=== PATIENT | male | born 1945 | race Caucasian/White ===

== ENCOUNTER 2017-05-31 15:06 | Inpatient (IN) | payer MEDICAID, OTHER ==
[2017-05-31] MEDS ORDERED: ATROPINE SULFATE 1 MG/10 ML SYR ONE (15:46)
--- NOTE | 2017-05-31 15:52 | CPEKG ---
Heart Rate: 97 RR Interval: 619 P-R Interval: 194 QRSD Interval: 156 QT Interval: 484 QTC Interval: 615 P [place]: 46 QRS [place]: -62 T Wave [place]: 137 EKG Severity - ABNORMAL ECG - EKG Impression: MOBITZ II AV BLOCK EKG Impression: IVCD, CONSIDER ATYPICAL RBBB EKG Impression: PROBABLE ANTEROSEPTAL INFARCT, OLD Electronically Signed By: Deloris Berry 03-Jun-2017 08:54:43
[2017-05-31] MEDS ORDERED: NS 1,000 ML IV ONE ×3 (15:53→20:30)
[2017-05-31] MEDS ORDERED: ASPIRIN 81 MG CHEWABLE TAB PO ONE (15:53)
[2017-05-31] MEDS ORDERED: ATROPINE SULFATE 1 MG/10 ML SYR IVP ONE (15:54)
[2017-05-31 16:10] LABS: PLATELET COUNT 317 10^3/uL (150-400)
[2017-05-31 16:20] LABS: INR 0.99 (0.83-1.16); PROTIME(PATIENT) 13.3 SEC (12.0-15.0)
--- NOTE | 2017-05-31 16:32 | CPEKG ---
Heart Rate: 44 RR Interval: 1364 P-R Interval: 212 QRSD Interval: 178 QT Interval: 612 QTC Interval: 524 P [place]: 48 QRS [place]: -61 T Wave [place]: 49 EKG Severity - ABNORMAL ECG - EKG Impression: SINUS BRADYCARDIA EKG Impression: RBBB AND LAFB Electronically Signed By: Deloris Berry 03-Jun-2017 08:53:46
--- NOTE | 2017-05-31 16:36 | EDPHY ---
H & P Stated Complaint: waves of dizzyness/saw [facility] wed tx for vertigo/hr 40"s Time Seen by Provider: 05/31/17 15:38 HPI/ROS: CHIEF COMPLAINT: Waves of dizziness HISTORY OF PRESENT ILLNESS: This is a 71-year-old male presents emergency department reporting 6 days of dizzy episodes. He describes the dizziness as lasting about 30 sec. And has both a spinning sensation as well as feeling that he might faint. He did see his primary care physician at the [facility] and had an EKG by his reports. He was told that he had vertigo. He was given over-the- counter meclizine. Patient presents today reporting that the symptoms have been worsening and have been persistent. He has no chest pain. No shortness of breath. No fainting although he did have an episode of vomiting. No cardiac history. Patient was noted to be bradycardic at triage. He denies any pre-existing fevers or chills. Denies diarrhea, urinary complaints, headache. REVIEW OF SYSTEMS: Aside from elements discussed in the HPI, a comprehensive 10-point review of systems was reviewed and is negative. PAST MEDICAL HISTORY: High blood pressure SOCIAL HISTORY: Former smoker. No alcohol. Denies drug use. VITAL SIGNS Reviewed by me. GENERAL: Well-developed, well-nourished, resting comfortably in no respiratory distress. Pleasant. HEENT: Atraumatic. Eyes: No icterus, no injection. Mouth: moist mucous membranes. No erythema or lesions. Neck: supple with no adenopathy. LUNGS: Clear to auscultation bilaterally, no wheezes, rhonchi or rales. CARDIAC: Bradycardic rate. No murmur. ABDOMEN: Soft, nontender, nondistended, bowel sounds normal. BACK: No CVA tenderness. EXTREMITIES: No trauma. No edema. Range of motion is normal throughout. NEURO: Alert and oriented, grossly nonfocal. SKIN: Warm and dry, no rash. PSYCHIATRIC: Normal mentation, no agitation. - Personal History Current Tetanus/Diphtheria Vaccine: Yes - Medical/Surgical History Hx Asthma: No Hx Chronic Respiratory Disease: No Hx Diabetes: No Hx Cardiac Disease: No Hx Renal Disease: No Hx Cirrhosis: No Hx Alcoholism: No Hx HIV/AIDS: No Hx Splenectomy or Spleen Trauma: No Other PMH: vertigo/htn - Social History Smoking Status: Never smoked Constitutional: Initial Vital Signs Temperature (C) 36.7 C 05/31/17 15:20 Heart Rate 44 L 05/31/17 15:20 Respiratory Rate 17 05/31/17 15:20 Blood Pressure 125/71 H 05/31/17 15:20 O2 Sat (%) 95 05/31/17 15:20 O2 Delivery Mode Room Air Allergies/Adverse Reactions: Sulfa (Sulfonamide Antibiotics) Allergy (Verified 05/31/17 15:18) Home Medications: Medication Instructions Recorded Albuterol [Proventil Inhaler HFA 1 - 2 puffs IH Q6H PRN 05/31/17 (*)] Budesonide/Formoterol 80/4.5 2 puffs IH BID 05/31/17 [Symbicort 80-4.5 Mcg Inhaler] Cetirizine [ZyrTEC 10 mg (*)] 10 mg PO DAILY 05/31/17 Levothyroxine [Synthroid 75 mcg 75 mcg PO DAILY06 05/31/17 (*)] Lisinopril/Hctz 20/12.5MG 1 ea PO DAILY 05/31/17 [Zestoretic/Prinzide 20/12.5MG (*)] Medical Decision Making ED Course/Re-evaluation: 71-year-old gentleman presenting to the emergency department with episodes of dizziness. He was noted to be bradycardic at triage. Monitor demonstrates type 2 heart block with 2-1 block. Patient's EKG is a bit more difficult to interpret secondary to baseline artifact but demonstrates second-degree heart block on my reading, Mobitz type 2. Patient had IV placed and was placed on the monitor. Pacer were also applied. Blood pressure is normotensive at 125/71. Patient's course was discussed with Dr. Saul Alvares. Images of the rhythm strips and EKG were transmitted to Dr. Alvares who reviewed them. Patient felt to be stable currently for hospital admission with pacer pads and plan for cardiology evaluation and likely pacemaker placement tomorrow. Troponin 0.018. Patient has a mildly elevated creatinine at 1.4, no old records available at this time for comparison. Patient was evaluated the emergency department by the hospitalist service, Dr. Mabry. Please see his notations. Results of the EKG and consultation with Cardiology were reviewed with the patient. He is in agreement with the plan of admission and understands the need for further evaluation. Blood pressures remained stable in the emergency department. Differential Diagnosis: Differential diagnosis of the patient's dizziness was considered including but not limited to peripheral and central causes of vertigo, cardiac arrhythmias, cardiac ischemia, electrolyte disturbances, neurologic causes, orthostatic causes including dehydration, and blood loss. Consult/Admit Bed Type: Dr. Heraclio Mabry, [facility] - Data Points Laboratory Results: Laboratory Results 05/31/17 15:53 05/31/17 15:50 Medications Given: Acetaminophen/Codeine Phosphate (Tylenol #3) 1 - 2 tab PO Q6HRS PRN PRN Reason: Cough, Mild Stop: 06/11/17 21:34 Last Admin: 06/01/17 21:48 Dose: 1 tab Albuterol (Proventil Inhaler) 1 - 2 puffs IH Q6H PRN PRN Reason: Short of Breath/Dyspnea Stop: 11/27/17 18:01 Last Admin: 06/02/17 08:16 Dose: 2 puffs Albuterol/Ipratropium (Duoneb) 3 ml IH Q6 RO Stop: 11/29/17 17:59 Last Admin: 06/03/17 05:33 Dose: 3 ml Aspirin Buffered (Aspirin Ec) 325 mg PO DAILY RO Stop: 11/29/17 08:59 Last Admin: 06/02/17 08:18 Dose: 325 mg Atorvastatin Calcium (Lipitor) 40 mg PO DAILY RO Stop: 11/29/17 11:29 Last Admin: 06/02/17 15:22 Dose: 40 mg Budesonide/Formoterol Fumarate (Symbicort 80-4.5 Mcg Inhaler) 2 puffs IH BID RO Stop: 11/27/17 20:59 Last Admin: 06/03/17 08:04 Dose: 2 puffs Cetirizine HCl (Zyrtec) 10 mg PO DAILY RO Stop: 11/28/17 08:59 Last Admin: 06/02/17 08:17 Dose: 10 mg Clopidogrel Bisulfate (Plavix) 75 mg PO DAILY RO Stop: 11/29/17 08:59 Last Admin: 06/02/17 08:18 Dose: 75 mg Levothyroxine Sodium (Synthroid) 75 mcg PO DAILY06 RO Stop: 11/28/17 05:59 Last Admin: 06/03/17 06:16 Dose: 75 mcg Discontinued Medications Aspirin (Aspirin) 324 mg PO EDNOW ONE Stop: 05/31/17 15:54 Last Admin: 05/31/17 15:58 Dose: 324 mg Aspirin Buffered (Aspirin Ec) 325 mg PO ONCALL ONE Stop: 06/01/17 08:50 Last Admin: 06/01/17 11:40 Dose: 325 mg Atropine Sulfate (Atropine 1 Mg/10 Ml Syringe) 1 mg IVP EDNOW ONE Stop: 05/31/17 15:55 Last Admin: 05/31/17 15:59 Dose: 1 mg Bacitracin (Bacitracin 1000 Ml Irrigation) 50,000 units IRR ONCALL ONE Stop: 05/31/17 20:31 Last Admin: 06/01/17 03:14 Dose: Not Given Bacitracin (Bacitracin 1000 Ml Irrigation) 50,000 units IRR ONCALL ONE Stop: 06/01/17 14:53 Last Admin: 06/01/17 17:10 Dose: Not Given Bacitracin (Bacitracin 1000 Ml Irrigation) 50,000 units IRR ONCALL ONE Stop: 06/02/17 09:01 Last Admin: 06/02/17 14:13 Dose: Not Given Clopidogrel Bisulfate (Plavix) 600 mg PO ONCE ONE Stop: 06/01/17 14:45 Last Admin: 06/01/17 15:14 Dose: Not Given Diazepam (Valium) 5 mg PO ONCALL ONE Stop: 06/01/17 08:50 Last Admin: 06/01/17 11:40 Dose: 5 mg Diazepam (Valium) 5 mg PO ONCALL ONE Stop: 06/02/17 09:01 Last Admin: 06/02/17 08:59 Dose: 5 mg Diphenhydramine HCl (Benadryl) 25 mg PO ONCALL ONE Stop: 06/01/17 08:50 Last Admin: 06/01/17 11:40 Dose: 25 mg Diphenhydramine HCl (Benadryl) 25 mg PO ONCALL ONE Stop: 06/02/17 09:01 Last Admin: 06/02/17 08:59 Dose: 25 mg Famotidine (Pepcid) 20 mg PO ONCALL ONE Stop: 06/01/17 08:50 Last Admin: 06/01/17 11:40 Dose: 20 mg Famotidine (Pepcid) 20 mg PO ONCALL ONE Stop: 06/02/17 09:01 Last Admin: 06/02/17 08:59 Dose: 20 mg Sodium Chloride (Ns) 1,000 mls @ 0 mls/hr IV EDNOW ONE; Wide Open PRN Reason: Protocol Stop: 05/31/17 15:54 Last Admin: 05/31/17 15:58 Dose: 1,000 mls Sodium Chloride (Ns) 1,000 mls @ 150 mls/hr IV CONT RO Stop: 11/27/17 17:14 Last Admin: 06/01/17 18:42 Dose: 1,000 mls Sodium Chloride (Ns) 1,000 mls @ 0 mls/hr IV ONCE ONE; Wide Open PRN Reason: Protocol Stop: 05/31/17 17:56 Last Admin: 06/01/17 03:14 Dose: Not Given Sodium Chloride (Ns) 1,000 mls @ 0 mls/hr IV ONCALL ONE PRN Reason: As Directed Stop: 05/31/17 20:31 Last Admin: 06/01/17 03:14 Dose: Not Given Cefazolin Sodium (Cefazolin Syringe) 2 gm in 20 mls @ 200 mls/hr IVP ONCALL ONE PRN Reason: Protocol Stop: 06/01/17 14:57 Last Admin: 06/01/17 17:10 Dose: Not Given Sodium Chloride (Ns) 1,000 mls @ 0 mls/hr IV ONCALL ONE PRN Reason: As Directed Stop: 06/01/17 14:53 Last Admin: 06/01/17 10:15 Dose: 1,000 mls Cefazolin Sodium (Cefazolin Syringe) 2 gm in 20 mls @ 200 mls/hr IVP ONCALL ONE PRN Reason: Protocol Stop: 06/02/17 09:05 Last Admin: 06/02/17 14:13 Dose: Not Given Nitroglycerin (Nitro-Bid 2%) 1 inch TP Q6HRS [facility] Stop: 11/28/17 00:00 Last Admin: 06/01/17 18:43 Dose: Not Given Departure - Departure Disposition: [facility] Acute Clinical Impression: Heart block AV second degree Condition: Fair
[2017-05-31] MEDS ORDERED: ACETAMINOPHEN 325 MG TAB PO PRN (17:12)
--- NOTE | 2017-05-31 17:51 | PDGENHP ---
History and Physical - Chief Complaint Acute dizziness - History of Present Illness PCP: Dr. Sandoval [facility] in [place] HPI: 71 yo M p/w acute dizziness characterized as a transient lightheaded feeling, no room spinning, w/ onset of symptoms 6 days ago and duration approx 30 seconds on each episode. The dizziness is intermittent, not positional, and not exacerbated by head movement. He went to PCP office, had blood chemistries drawn (reportedly "normal"), had a Aly-Halpike performed, was told he had vertigo, was instructed to take PRN meclizine. He attempted meclizine, and initially felt like it alleviated symptoms. However, over the interval between then and now, symptoms have persisted, have been associated w/ one episode of vomiting. Meclizine does not alleviate them. They are not associated w/ chest pain, and patient reports that he has baseline shortness of breath which is stable. He has had a mildly productive cough. He reports that he has had normal PO intake of solids and liquids, drinks "a lot" of soda/fluids daily, but has not had any food on the date of this presentation. He has never had a stress test or Echo that he recalls History Information - Allergies/Home Medication List Allergies/Adverse Reactions: Sulfa (Sulfonamide Antibiotics) Allergy (Verified 05/31/17 15:18) Home Medications: Hydrochlorothiazide 05/31/17 [Last Taken Unknown] Levothyroxine 05/31/17 [Last Taken Unknown] Meclizine HCl 05/31/17 [Last Taken Unknown] I have personally reviewed and updated: family history, medical history, social history, surgical history - Past Medical History hypertension Additional medical history: Reported restrictive lung disease 2/2 caustic exposure in past - Surgical History Additional surgical history: Hernia repair 1991 - Family History Additional family history: no family hx of heart block or premature CAD - Social History Smoking Status: Former smoker Alcohol Use: None Drug Use: None Additional social history: Retired [place] , 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 Review of Systems Review of Systems: ROS: 10pt was reviewed & negative except for what was stated in HPI & below Respiratory: Reports: cough Gastrointestinal: Reports: vomitting Neurological: Reports: other (dizziness) Physical Exam Physical Exam: Temp Pulse Resp BP Pulse Ox 36.7 C 47 L 18 107/67 96 05/31/17 15:20 05/31/17 17:35 05/31/17 17:35 05/31/17 17:35 05/31/17 17:35 Constitutional: no apparent distress, appears nourished, not in pain, obese, No uncomfortable Eyes: PERRL, anicteric sclera, EOMI Ears, Nose, Mouth, Throat: hearing normal, no oral mucosal ulcers, other (tacky mucous membranes) Cardiovascular: bradycardia, No systolic murmur (distant heart sounds), No irregularly irregular, No tachycardia, No edema Respiratory: no respiratory distress, no rales or rhonchi, clear to auscultation Gastrointestinal: normoactive bowel sounds, soft, non-tender abdomen, no palpable masses, No distension Skin: No abrasion, No rash Neurologic: AAOx3, sensation intact bilaterally, No weakness (motor 5/5 bilat UE /LE), No facial droop Psychiatric: interacting appropriately, not anxious, not encephalopathic, thought process linear Lymph, Heme, Immunologic: other (2cm submandibular lymph nodes, non-tender) Lab Data & Imaging Review 05/31/17 15:53 05/31/17 15:50 WBC 12.60 10^3/uL (3.80-9.50) H 05/31/17 15:53 RBC 5.70 10^6/uL (4.40-6.38) 05/31/17 15:53 Hgb 16.4 g/dL (13.7-17.5) 05/31/17 15:53 Hct 48.3 % (40.0-51.0) 05/31/17 15:53 MCV 84.7 fL (81.5-99.8) 05/31/17 15:53 MCH 28.8 pg (27.9-34.1) 05/31/17 15:53 MCHC 34.0 g/dL (32.4-36.7) 05/31/17 15:53 RDW 15.2 % (11.5-15.2) 05/31/17 15:53 Plt Count 317 10^3/uL (150-400) 05/31/17 15:53 MPV 9.0 fL (8.7-11.7) 05/31/17 15:53 Neut % (Auto) 72.8 % (39.3-74.2) 05/31/17 15:53 Lymph % (Auto) 16.3 % (15.0-45.0) 05/31/17 15:53 [place] % (Auto) 7.6 % (4.5-13.0) 05/31/17 15:53 Eos % (Auto) 2.1 % (0.6-7.6) 05/31/17 15:53 Baso % (Auto) 0.6 % (0.3-1.7) 05/31/17 15:53 Nucleat RBC Rel Count 0.0 % (0.0-0.2) 05/31/17 15:53 Absolute Neuts (auto) 9.17 10^3/uL (1.70-6.50) H 05/31/17 15:53 Absolute Lymphs (auto) 2.05 10^3/uL (1.00-3.00) 05/31/17 15:53 Absolute Monos (auto) 0.96 10^3/uL (0.30-0.80) H 05/31/17 15:53 Absolute Eos (auto) 0.27 10^3/uL (0.03-0.40) 05/31/17 15:53 Absolute Basos (auto) 0.07 10^3/uL (0.02-0.10) 05/31/17 15:53 Absolute Nucleated RBC 0.00 10^3/uL (0-0.01) 05/31/17 15:53 Immature Gran % 0.6 % (0.0-1.1) 05/31/17 15:53 Immature Gran # 0.08 10^3/uL (0.00-0.10) 05/31/17 15:53 PT 13.3 SEC (12.0-15.0) 05/31/17 15:30 INR 0.99 (0.83-1.16) 05/31/17 15:30 APTT 31.9 SEC (23.0-38.0) 05/31/17 15:30 Sodium 137 mEq/L (135-145) 05/31/17 15:50 Potassium 4.4 mEq/L (3.5-5.2) 05/31/17 15:50 Chloride 101 mEq/L (97-110) 05/31/17 15:50 Carbon Dioxide 21 mEq/l (22-31) L 05/31/17 15:50 Anion Gap 15 mEq/L (8-16) 05/31/17 15:50 BUN 26 mg/dL (7-23) H 05/31/17 15:50 Creatinine 1.4 mg/dL (0.7-1.3) H 05/31/17 15:50 Estimated GFR 50 05/31/17 15:50 Glucose 109 mg/dL (70-100) H 05/31/17 15:50 Calcium 9.7 mg/dL (8.5-10.4) 05/31/17 15:50 Troponin I 0.018 ng/mL (0.000-0.034) 05/31/17 15:50 Visualized and Interpreted EKG results: Yes EKG Interpretation: Positive for: other (initial EKG w/ Mobitz type II and IVD, rhythm strip w/ clear type II heart block, follow-up EKG w/ RBBB/LAFB and possibly sinus shonna) Assessment & Plan Assessment: 71 yo M p/w second degree heart block c/b HAJA Plan: # Heart block. Acute, new problem to this provider, further w/u indicated. Appears to be second degree on rhythm strips w/ some e/o sinus shonna - no overt hypotension, although HAJA may be suggestive that he has had hypoperfusion/hypotension prior to arrival - d/w Dr. Alvares, he has reviewed rhythm strip, he does not believe that patient requires emergent PPM tonight so long as he is normotensive, but we have agreed to leave pacer pads in place, monitor on tele, and make NPO after MN for likely PPM tomorrow and further cards eval - get Echo - check TSH - monitor lytes - unclear if viral precipitant or purely coincidental, but cough and leukocytosis warrant r/o PNA w/ CXR as well as RVP - s/p atropine in ED, no indication for further Rx at this time # Possible HAJA. Likely hypovolemic in setting of above, although review of outside records (09/12/08) demonstrates Cr 1.5 at that time, patient reports he was "dehydrated" on that ED presentation - given that he had labs 6 days ago, order outside lab records from [facility] in [place] for comparison - empirically NS 150ml/hr - repeat Cr in AM # Suspected restrictive lung disease. At increase risk of PNA, check CXR now, cont PRN inhalers # HTN. Chronic, hold HCTZ given HAJA Diet. Regular, NPO after MN PPx. High risk, SCDs, hold pharm given PPM Code. Full per patient, MDPOA is friend Fatemeh Moya [phone] Dispo. ADD uncertain, anticipated LOS > 48hrs for reasonable medical necessity including 2nd deg heart block requiring urgent PPM c/b HAJA and underlying restrictive lung disease.
[2017-05-31] MEDS: NS 1,000 ML IV SCH ×2 (19:13→22:13)
[2017-05-31] MEDS ORDERED: BACITRACIN IRRIGATION/NS 50,000 UNITS/1,000 ML BTL IRR ONE (20:30)
[2017-05-31] MEDS ORDERED: MIDAZOLAM 2 MG/2 ML VIAL ONE (20:32)
[2017-05-31] MEDS ORDERED: fentaNYL 100 MCG/2 ML INJ ONE (20:32)
[2017-05-31] MEDS ORDERED: LIDOCAINE 1% 300 MG/30 ML SDV ONE (20:32)
[2017-05-31] MEDS ORDERED: IOPAMIDOL (ISOVUE-370) 150 ML BTL IV ONE (20:58)
[2017-05-31] MEDS: BUDESONIDE/FORMOTEROL 80/4.5 60 PUFFS/MDI IH SCH (21:08)
--- NOTE | 2017-05-31 21:15 | GCON ---
[f rep st] CONSULTATION CARDIOLOGY CONSULTATION DATE OF CONSULTATION: 05/31/2017 REASON FOR CONSULTATION: Secondary heart block. Dizziness. HISTORY OF PRESENT ILLNESS: This is a 71-year-old gentleman who is usually followed [facility] . He has been having some dizzy episodes, which have worsened over the past 5-6 days. He was appare ntly seen at a [facility] and thought to have vertigo. However, today, it got much worse. He present ed to the emergency room here and his EKG initially showed sinus bradycardia, then showed probable 2: 1 heart block. He was transferred up to the floor, doing well, and he started having higher degrees of heart block. He had some lightheadedness, but no clear syncope. He was transferred to the intens [facility] care unit, where I am seeing him now. He is having 3:1 heart block, talking to me, is alert and conversant. In speaking to him, he has had no fever, chills, nausea, vomiting, or other issues. His only new medication was meclizine. Otherwise, on hydrochlorothiazide and thyroxine by his [facility]. At this point, because of the ongoing and increasing degree heart block, I have recommended tem porary pacemaker placement. I discussed this option. We will place it through the groin this sheila carrillo. He understands, accepts, and wishes to proceed, and he will sign the consent. He denies any ACS symptomatology or CHF. I suspect he will need CAD screening at some point, but he states he has neve r had any diagnosis of CAD. ALLERGIES: Sulfa. MEDICATIONS: His home medications include levothyroxine and hydrochlorothiazide. REVIEW OF SYSTEMS: A 10-point review of systems is negative at this point, except for the HPI. He d enies any ongoing fevers, chills. He does have a small cough, but nonproductive. EXAM: VITAL SIGNS: Blood pressure was 114/74 with a sinus rate of 74 with multiple blocked P waves. GENERAL: He is a middle-aged male who is alert, oriented, and conversant. In no acute distress. LUNGS: Clear. CARDIOVASCULAR: Regular rate and rhythm. I could not hear a murmurs, gallop, or rub . ABDOMEN: Soft, nontender. MUSCULOSKELETAL: No signs of clubbing or edema. Pulses are 2+ and sy mmetric. LABORATORY DATA: His white count was 12, hemoglobin was 16. His troponin 0.18. TSH 3.9. Creatinin e 1.4, potassium 4.4. ASSESSMENT: 1. Lightheaded and dizziness which have been somewhat chronic, worsening recently. Thought initiall y to be vertigo. However, at this point, he clearly has heart block, increasing to a high grade hear t block. I would place a temporary pacemaker tonight. He is not having any chest pain or syncope. 2. Patient has history of hypertension which apparently is under good control. 3. History of hypothyroidism on Synthroid therapy. I did discuss with the patient that he most likely will need a permanent pacemaker, which could be fu rther discussed with the Hospitalist Service on Thursday, as well as risk stratification for coronary a rtery disease. However, tonight, the most acute issue here is his ongoing heart block which has been worsening over the last few hours. He understands and accepts and wishes to proceed with temporary pacemaker placement. /[id number]/MODL
--- NOTE | 2017-05-31 21:36 | PDDXCAT ---
Diagnostic Cath Note - . Date: 05/31/17 Inspector Ball Points: Giorgio (pt with multiple cv risk factors and high grade a-v block) - Procedure Access: right groin Procedure: left heart catheterization, coronary angiography, left ventriculogram , other (temporary pacemaker placement) - Materials Left Heart Cath size: 6F Left Heart Cath materials: standard multipack (JL4, JR4, pigtail) - Findings-Left Heart Catheterization LM: ok LAD: mid 50-75% diffuse lad LCX: mid 75% with probable chronic mom occlusion RCA: large ectatactic vessel with r-l collats to mom EDP: 14mmhg LVEF: lvef 55% Wall motion: ?mild anterior hypokinesis Complications: none Estimated blood loss: <50ml Closure method: manual pressure Assessment: 1. high grade block with placement of temporary pacemaker rate 70 threshold 1.2m amps. 2. diffuse cad with modrqte lad disease with 75 %mid cx with chronic occl of mom with r-l collats and chronic occl of large 1st diagonal..large ectactic rca with r-l collats. 3. low normal lvef with mild hypokinesis of the anterior wall Plan: 1. med management with consult with interventional service in the AM Patient Problems: Problems Problem Status Onset Heart block AV second degree Acute
[2017-06-01] MEDS: NITROGLYCERIN 2% 1 GM PACKET TP SCH ×4 (00:55→18:43)
[2017-06-01] MEDS ORDERED: ATROPINE SULFATE 1 MG/10 ML SYR ONE (01:10)
[2017-06-01] MEDS: NS 1,000 ML IV SCH ×2 (03:50→18:42)
[2017-06-01] MEDS: LEVOTHYROXINE 75 MCG TAB PO SCH (06:25)
[2017-06-01 06:51] LABS: PLATELET COUNT 259 10^3/uL (150-400)
--- NOTE | 2017-06-01 08:47 | CPEKG ---
Heart Rate: 70 RR Interval: 857 P-R Interval: 252 QRSD Interval: 206 QT Interval: 492 QTC Interval: 531 P [place]: 0 QRS [place]: -49 T Wave [place]: 144 EKG Severity - ABNORMAL ECG - EKG Impression: VENTRICULAR-PACED COMPLEXES Electronically Signed By: Jacek Huang 02-Jun-2017 15:53:33
[2017-06-01] MEDS ORDERED: ASPIRIN EC 325 MG TAB PO ONE (08:49)
[2017-06-01] MEDS ORDERED: TEMAZEPAM 15 MG CAP PO PRN (08:49)
[2017-06-01] MEDS ORDERED: diphenhydrAMINE 25 MG CAP PO ONE (08:49)
[2017-06-01] MEDS ORDERED: DIAZEPAM 5 MG TAB PO ONE (08:49)
[2017-06-01] MEDS ORDERED: FAMOTIDINE 20 MG TAB PO ONE (08:49)
--- NOTE | 2017-06-01 08:53 | SOAPPROG ---
ALICE Progress Note Assessment/Plan: Assessment: 1. Complete heart block associated with near syncope. 2. Coronary artery disease with critical 2 vessel disease involving the LAD and obtuse marginal branch. Impression: Day 1. Status post admission with complete heart block near syncope. I reviewed diagnostic angiograms. Would recommend complete revascularization with PCI of the circumflex and LAD followed by implantation of a dual-chamber pacemaker 24-48 hours later. Discussed other options including medical therapy with a pacemaker versus coronary artery bypass grafting. Patient does not have diabetes. Left ventricular function is normal. I think he is a candidate for any approach. Having discussed this with the patient he and I agree that PCI strategy would be favored. PCI of circumflex and LAD this afternoon. Dual-chamber pacemaker 24-48 hours following. Continue aggressive secondary prevention. Plan: 06/01/17 08:50 Subjective: Uneventful night. Episode of near-syncope taking him to the cardiac catheterization lab. This morning no chest pain PND orthopnea. He has had no further presyncope. Objective: Medications Generic Name Dose Route Start Last Admin Trade Name Freq PRN Reason Stop Dose Admin Aspirin Buffered 325 mg 06/01/17 08:49 Aspirin Ec PO 06/01/17 08:50 ONCALL ONE Levothyroxine Sodium 75 mcg 06/01/17 06:00 06/01/17 06:25 Synthroid PO 11/28/17 05:59 75 mcg DAILY06 RO Vital Signs Temp Pulse Resp BP Pulse Ox 36.6 C 70 19 81/64 L 96 06/01/17 07:00 06/01/17 08:00 06/01/17 08:00 06/01/17 08:00 06/01/17 08:00 Microbiology 05/31/17 19:25 Respiratory Panel (PCR) - Final Nasal, Sinus - Swab No Organism Detected Laboratory Results 06/01/17 06:25 06/01/17 06:25 05/31/17 06/01/17 06/02/17 05:59 05:59 05:59 Intake Total 2750 Output Total 675 Balance 2075 PT 13.3 SEC (12.0-15.0) 05/31/17 15:30 INR 0.99 (0.83-1.16) 05/31/17 15:30 Films reviewed revealing a tortuous right coronary artery. Left anterior descending artery long 75-80% stenosis. Circumflex artery critical 85% stenosis. Occluded limb of a diagonal. Laboratory Tests 05/31/17 06/01/17 15:50 06:25 Creatinine 1.4 H 1.2 Troponin I 0.018 Physical Exam - Physical Exam General Appearance: alert, no apparent distress EENT: PERRL/EOMI Neck: non-tender, full range of motion Respiratory: chest non-tender, lungs clear, normal breath sounds Cardiac/Chest: normal peripheral pulses, regular rate, rhythm, No edema, No gallop, No JVD Abdomen: normal bowel sounds, non-tender, soft Back: Normal inspection Skin: normal color, warm/dry Neuro/Psych: no motor/sensory deficits, alert, normal mood/affect, No facial droop ICD10 Worksheet Patient Problems: Problems Problem Status Onset Heart block AV second degree Acute Past Medical History - Personal History Current Tetanus/Diphtheria Vaccine: Yes - Medical/Surgical History Hx Asthma: No Hx Chronic Respiratory Disease: Yes Hx Cardiac Disease: No Hx Diabetes: No Hx Renal Disease: No Hx Alcoholism: No Hx Cirrhosis: No Hx HIV/AIDS: No Hx Splenectomy or Spleen Trauma: No Other PMH: htn, left hearing loss, vertigo, depression, OA. - Social History Smoking Status: Former smoker Review of Systems - Review of Systems Constitutional: denies: chills, fever EENTM: no symptoms reported Respiratory: no symptoms reported Cardiac: no symptoms reported Gastrointestinal/Abdominal: no symptoms reported Genitourinary: no symptoms Musculoskelatal: no symptoms Skin: no symptoms Neurological: no symptoms Hematologic/Lymphatic: no symptoms reported Immunologic/allergic: no symptoms reported
--- NOTE | 2017-06-01 09:09 | PDMN ---
Medical Necessity Medical necessity: Patient meets inpatient criteria per physician note and [facility] Card[facility]G - 2 days - (new [place] Type II AV block, transitioning to complete heart block after admission; HAJA/Creat 1.4, possibly d/t hypoperfusion w/AV block; requires emergent temporary pacer, IV hydration; anticipated LOS > 2 midnights for ongoing evaluation and treatment.)
[2017-06-01] MEDS: BUDESONIDE/FORMOTEROL 80/4.5 60 PUFFS/MDI IH SCH ×2 (09:30→20:42)
[2017-06-01] MEDS: ALBUTEROL 60 PUFFS/8 GM MDI IH PRN ×3 (09:37→20:43)
[2017-06-01 09:40] LABS: INR 1.04 (0.83-1.16); PROTIME(PATIENT) 13.8 SEC (12.0-15.0)
--- NOTE | 2017-06-01 09:43 | CPEKG ---
Heart Rate: 35 RR Interval: 1714 P-R Interval: 224 QRSD Interval: 178 QT Interval: 476 QTC Interval: 364 P [place]: 16 QRS [place]: -73 T Wave [place]: 99 EKG Severity - ABNORMAL ECG - EKG Impression: SINUS BRADYCARDIA EKG Impression: M[place] TYPE 2 SECOND-DEGREE AV BLOCK EKG Impression: RBBB AND LAFB Electronically Signed By: Jacek Huang 02-Jun-2017 15:53:01
[2017-06-01] MEDS: CETIRIZINE 10 MG TAB PO SCH (09:46)
--- NOTE | 2017-06-01 10:28 | ECHO ---
[email or web address] [address] [address] Main: [phone] Fax: [email or web address] Echocardiogram Name: KAYLEY APONTE MR#: [id number] Study Date: 06/01/2017 Study Time: 08:21 AM Date of : 1945 Age: 71 year(s) Height: 180.3 cm (71 in.) Weight: 113.4 kg (250 lb.) BSA: 2.32 m2 Gender: Male Examination: Echo Indication: Heart Block, Coronary artery disease Image Quality: Technically Difficult Contrast: Requested by: Genaro Mabry BP: 81 mmHg/64 mmHg Heart Rate: Rhythm: Indication: Heart Block, Coronary artery disease Procedure Staff Middle Card Tender: Carmen Gonzalez [facility] Reading Physician: Abram Ziegler Requesting Provider: Conclusions: No pericardial effusion. Concentric left ventricular hypertrophy with normal ejection fraction of 61%. Rhythm disturbance noted with ventricular pacing. Pacing lead in the right heart. Right ventricular systolic pressure 25 mm of mercury. Ascending aorta 3.7 cm. Measurements: Chambers Valvular Assessment AV/MV Valvular Assessment TV/PV Normal Normal Normal Name Value Range Name Value Range Name Value Range Ao [place] (2D): 3.7 cm (1.4 cm-2.6 AV Vmax: 1.37 m/s (1 m/s-1.7 TR Vmax: 2.24 mm/s ( - ) cm) m/s) TR PGmax: 20 mmHg ( - ) IVSd (2D): 1.4 cm (0.6 cm-1.1 AV maxP mmHg ( - ) syst. PAP: 25 mmHg ( - ) cm) LVOT Vmax: 1.36 m/s (0.7 m/s-1.1 PV Vmax: 0.74 m/s (0.6 m/s-0.9 LVDd (2D): 3.3 cm (4.2 cm-5.9 m/s) m/s) cm) MV E Vmax: 0.73 m/s ( - ) PV PGmax: 2 mmHg ( - ) LVDs (2D): 2.3 cm (2.1 cm-4 MV A Vmax: 0.86 m/s ( - ) cm) MV E/A: 0.85 ( - ) LVPWd (2D): 1.1 cm (0.6 cm-1 cm) LVEF (BP): 61 % (>=55 %) RVDd(2D): 3.0 cm (1.9 cm-3.8 cmmm) Continued Measurements: Chambers Valvular Assessment AV/MV Valvular Assessment TV/PV Name Value Name Value Name Value LADs Lon.1 cm MV DecTime: 261 m/s CVP (est.): 5 mmHg LA Area: 21.8 cm2 LA Volume: 57 ml LA Volume Index: 24.6 ml/m2 Patient: KAYLEY APONTE Study Date: 06/01/2017 Page 1 of 2 08:21 AM RA Area: 12.0 cm2 Additional Vessels Name Value Ao Ascendin.6 cm Findings: Left Ventricle: Normal size left ventricle. Concentric LV hypertrophy. Normal global systolic LV function. EF is 61 %. There is paradoxic septal motion suggestive of bundle branch block, paced cardiac rhythm, or prior cardiac surgery. Normal diastolic LV function. Right Ventricle: Normal size right ventricle. Normal RV function. There is a pacemaker lead noted in the right ventricle. Left Atrium: The left atrium is normal in size. Right Atrium: The right atrium is normal in size. There is a pacemaker lead noted in the right atrium. Mitral Valve: The mitral valve is normal in appearance and function. Mild mitral annular calcification. There is no significant mitral valve regurgitation. No mitral stenosis is present. Aortic Valve: The aortic valve is normal in appearance and function. Mild aortic valve regurgitation is present. Unable to obtain a pressure half time due to eccentric AI jet. No aortic valve stenosis is present. Tricuspid Valve: The tricuspid valve is normal in appearance and function. Trivial tricuspid valve regurgitation. The pulmonary artery pressure is normal. Right ventricular systolic pressure measures 25mmHg. Pulmonic Valve: Pulmonary valve not well visualized. Aorta: Normal size aortic root measuring 3.7 cm. Normal size ascending aorta measuring 3.6 cm. IVC: The IVC is not well visualized. Pericardium: No pericardial effusion. (No Signature Object) Patient: KAYLEY APONTE Study Date: 06/01/2017 Page 2 of 2 08:21 AM [id number]
--- NOTE | 2017-06-01 10:44 | CPEKG ---
Heart Rate: 40 RR Interval: 1500 P-R Interval: 208 QRSD Interval: 188 QT Interval: 588 QTC Interval: 480 P [place]: 47 QRS [place]: -68 T Wave [place]: 82 EKG Severity - ABNORMAL ECG - EKG Impression: PREDOMINANT 2:1 AV BLOCK EKG Impression: NONSPECIFIC IVCD WITH LAD EKG Impression: LVH WITH SECONDARY REPOLARIZATION ABNORMALITY Electronically Signed By: Deloris Berry 03-Jun-2017 08:54:15
[2017-06-01] MEDS ORDERED: IOPAMIDOL (ISOVUE-370) 150 ML BTL IV ONE (11:45)
[2017-06-01] MEDS ORDERED: MIDAZOLAM 2 MG/2 ML VIAL ONE (11:45)
[2017-06-01] MEDS ORDERED: LIDOCAINE 1% 300 MG/30 ML SDV ONE (11:45)
[2017-06-01] MEDS ORDERED: fentaNYL 100 MCG/2 ML INJ ONE (11:45)
--- NOTE | 2017-06-01 13:27 | PDPROPOC ---
Sedation Plan of Care Sedation Plan of Care: vital signs stable, mental status noted, patient educated of risks, benefits, alternatives, patient can tolerate sedation ASA Classification: ASA 3 Planned drugs: fentanyl, midazolam Mallampati Score: Class 1 Mallampati Reference Image: Patient passed 3-3-2 rule?: Yes
--- NOTE | 2017-06-01 13:28 | PDHPUP ---
History & Physical Update H&P update statement: This history and physical update is based on an assessment of the patient which was completed after admission or registration (within 24 hours), but prior to the surgery/procedure. H&P update: H&P reviewed & patient examined, no change in patient's condition since H&P completed
[2017-06-01] MEDS ORDERED: BIVALIRUDIN 250 MG/5 ML VIAL IV ONE (13:47)
[2017-06-01] MEDS ORDERED: IOPAMIDOL (ISOVUE-300) 100 ML BTL ONE (14:29)
[2017-06-01] MEDS ORDERED: ATROPINE SULFATE 1 MG/10 ML SYR IVP PRN (14:44)
[2017-06-01] MEDS ORDERED: ONDANSETRON 4 MG/2 ML VIAL IVP PRN (14:44)
[2017-06-01] MEDS ORDERED: CLOPIDOGREL BISULFATE 75 MG TAB PO ONE (14:44)
[2017-06-01] MEDS ORDERED: CLOPIDOGREL BISULFATE 75 MG TAB ONE ×2 (14:48→14:49)
[2017-06-01] MEDS ORDERED: NS 1,000 ML IV ONE (14:52)
[2017-06-01] MEDS ORDERED: ceFAZolin 2 GM/SWFI 2 GM/20 ML SYR IVP ONE (14:52)
[2017-06-01] MEDS ORDERED: BACITRACIN IRRIGATION/NS 50,000 UNITS/1,000 ML BTL IRR ONE (14:52)
--- NOTE | 2017-06-01 14:52 | PDCTREPORT ---
Cardiothoracic Procedure Rpt Cardiothoracic Procedure Report: Procedure: PCI and stenting of the circumflex. PCI and stenting of the LAD. Indications: Acute onset complete heart block with critical 2 vessel coronary disease diagnosed by my partner Saul Alvares by angiography last evening for revascularization today prior to implantation of a dual-chamber pacemaker. Narrative: After reviewing diagnostic angiograms performed by my partner Dr. Alvares it was elected to proceed with PCI. A 7 [place] sheath was inserted in the left femoral artery. For details of the procedure please see the attached computer report. A 7 [place] EBU 3.75 guiding catheter was used to intubate the left main coronary artery. A 0.014 grand slam wire was used to cross the obtuse marginal stenosis. It was pre-dilated with a 3 mm balloon. There is a size discrepancy from the proximal to the distal vessel. A 3.5 x 12 mm synergy stent. Was deployed using a single inflation was post dilated with a 4 mm balloon. Repeat angiograms revealed LIO grade 3 flow. Wire was withdrawn. It was reshaped. Therapeutic ACT was confirmed. Using the same guiding catheter and grand slam wire the LAD stenosis was crossed. It was primarily stented with a 3.0 x 24 mm synergy stent. A 2nd 3.0 x 12 mm was placed distally due to incomplete stent expansion at the distal edge. This was post dilated with a 3.0, 3.25 and ultimately a 3.5 by 12 mm quantum balloon until the stent fully expanded. Repeat angiogram showed LIO grade 3 flow distally. Total contrast 175 cc. Sedation 2 mg Versed 25 mcg fentanyl. Radiation 15 mils of fluoroscopy with 3602 mGy. Conclusions successful 2 vessel revascularization. Plan for permanent pacemaker tomorrow. Patient Problems: Problems Problem Status Onset Heart block AV second degree Acute
--- NOTE | 2017-06-01 15:14 | CPEKG ---
Heart Rate: 44 RR Interval: 1364 P-R Interval: 236 QRSD Interval: 182 QT Interval: 480 QTC Interval: 411 P [place]: 60 QRS [place]: -67 T Wave [place]: 89 EKG Severity - ABNORMAL ECG - EKG Impression: SINUS BRADYCARDIA EKG Impression: VENTRICULAR PREMATURE COMPLEX EKG Impression: RBBB AND LAFB Electronically Signed By: Jacek Huang 02-Jun-2017 15:52:12
--- NOTE | 2017-06-01 17:02 | ASMTCMCOM ---
CM Note CM Note Notes: 71 year old male admitted for dizziness, shonna, heart block. He has a hx of HTN, CAD, Depression. Friends present. CM to follow. Date Signed: 06/01/2017 05:01 PM Electronically Signed By:Brisa Mir LCSW
--- NOTE | 2017-06-01 20:12 | HOSPPROG ---
Hospitalist Progress Note Assessment/Plan: * Complete Heart Block -s/p temporary PCM -PPM in am * CAD s/p stent LAD/circ -ASA/Plavix * Obesity BMI 36 - suspect STEFANIA -outpatient sleep study * ARF - improved with IVF * COPD - inhalers * HTN -holding lisinopril/HCTZ Subjective: No complaints other than difficulty breathing lying flat post cath Objective: Vital Signs Temp Pulse Resp BP Pulse Ox 36.5 C 70 21 H 105/60 95 06/01/17 17:00 06/01/17 18:45 06/01/17 18:45 06/01/17 18:45 06/01/17 18:45 Microbiology 05/31/17 19:25 Respiratory Panel (PCR) - Final Nasal, Sinus - Swab No Organism Detected Laboratory Results 06/01/17 06:25 06/01/17 09:15 05/31/17 06/01/17 06/02/17 05:59 05:59 05:59 Intake Total 2750 1590 Output Total 675 910 Balance 2075 680 PT 13.8 SEC (12.0-15.0) 06/01/17 09:15 INR 1.04 (0.83-1.16) 06/01/17 09:15 CXR viewed, my personal interpretation is - negative ECHO - normal EF - Physical Exam Constitutional: no apparent distress, appears nourished, not in pain Cardiovascular: regular rate and rhythym, no murmur, rub, or gallop Respiratory: no respiratory distress, no rales or rhonchi, clear to auscultation Gastrointestinal: normoactive bowel sounds, soft, non-tender abdomen, no palpable masses Skin: no rashes or abrasions, no fluctuance, no induration Neurologic: AAOx3, sensation intact bilaterally Psychiatric: interacting appropriately, not anxious, not encephalopathic, thought process linear ICD10 Worksheet Patient Problems: Problems Problem Status Onset Heart block AV second degree Acute
[2017-06-01] MEDS ORDERED: ACETAMINOPHEN/CODEINE 300/30MG TAB PO PRN (21:35)
[2017-06-02] MEDS: LEVOTHYROXINE 75 MCG TAB PO SCH (04:32)
[2017-06-02 04:48] LABS: PLATELET COUNT 220 10^3/uL (150-400)
[2017-06-02] MEDS: ALBUTEROL 60 PUFFS/8 GM MDI IH PRN (08:16)
[2017-06-02] MEDS: BUDESONIDE/FORMOTEROL 80/4.5 60 PUFFS/MDI IH SCH ×2 (08:16→20:17)
[2017-06-02] MEDS: CETIRIZINE 10 MG TAB PO SCH (08:17)
[2017-06-02] MEDS: CLOPIDOGREL BISULFATE 75 MG TAB PO SCH (08:18)
[2017-06-02] MEDS: ASPIRIN EC 325 MG TAB PO SCH (08:18)
--- NOTE | 2017-06-02 08:54 | CPEKG ---
Heart Rate: 70 RR Interval: 857 P-R Interval: 238 QRSD Interval: 210 QT Interval: 496 QTC Interval: 536 P [place]: 0 QRS [place]: -50 T Wave [place]: 137 EKG Severity - ABNORMAL ECG - EKG Impression: VENTRICULAR-PACED RHYTHM Electronically Signed By: Jacek Huang 02-Jun-2017 15:51:37
[2017-06-02] MEDS ORDERED: diphenhydrAMINE 25 MG CAP PO ONE (09:00)
[2017-06-02] MEDS ORDERED: DIAZEPAM 5 MG TAB PO ONE (09:00)
[2017-06-02] MEDS ORDERED: ceFAZolin 2 GM/SWFI 2 GM/20 ML SYR IVP ONE (09:00)
[2017-06-02] MEDS ORDERED: BACITRACIN IRRIGATION/NS 50,000 UNITS/1,000 ML BTL IRR ONE (09:00)
[2017-06-02] MEDS ORDERED: FAMOTIDINE 20 MG TAB PO ONE (09:00)
[2017-06-02] MEDS ORDERED: BUPIVACAINE 0.5% 30 ML SDV ONE (09:15)
[2017-06-02] MEDS ORDERED: MIDAZOLAM 2 MG/2 ML VIAL ONE ×2 (09:15→11:20)
[2017-06-02] MEDS ORDERED: fentaNYL 100 MCG/2 ML INJ ONE (09:15)
[2017-06-02] MEDS ORDERED: IOPAMIDOL (ISOVUE-300) 100 ML BTL ONE (09:15)
[2017-06-02] MEDS ORDERED: LIDOCAINE 1% 300 MG/30 ML SDV ONE (09:15)
--- NOTE | 2017-06-02 10:24 | SOAPPROG ---
SOAP Progress Note Assessment/Plan: Assessment: 1. History of syncope. 2. Baseline conduction system abnormalities noted on his ECG with episodes of complete heart block. 3. Coronary artery disease status post PCI/stenting of the circumflex and LAD yesterday. 4. Hypertension. 5. Obesity. Plan: The patient will undergo placement of a permanent pacemaker today. The risks, benefits and alternatives were discussed. Following that procedure we can remove his temporary pacemaker. 06/02/17 10:23 Subjective: The patient was seen and examined. The case was discussed with Drs. Saul Alvares and Abram Ziegler. He presents with syncope. He has had documented episodes of complete heart block. His baseline electrocardiogram demonstrates a bifascicular block. Currently, he has a temporary pacemaker in place. Yesterday he underwent PCI and stenting of both the circumflex and the left anterior descending. Historically, his ejection fraction is normal. Today he states that he is feeling well. He has not had any chest discomfort. He notes no fever, chills or sweats. He has been in a paced rhythm since shortly after admission at which point Dr. Alvares placed a temporary pacemaker. Objective: Vital Signs Temp Pulse Resp BP Pulse Ox 36.9 C 70 25 H 108/71 95 06/02/17 08:00 06/02/17 09:00 06/02/17 09:00 06/02/17 09:00 06/02/17 09:00 Microbiology 06/01/17 21:45 Respiratory Panel (PCR) - Final Nasal, Sinus - [place] Viral Transport No Organism Detected Laboratory Results 06/02/17 04:27 06/02/17 04:27 06/01/17 06/02/17 06/03/17 05:59 05:59 05:59 Intake Total 2750 2940 Output Total 675 1860 Balance 2075 1080 PT 13.8 SEC (12.0-15.0) 06/01/17 09:15 INR 1.04 (0.83-1.16) 06/01/17 09:15 Physical Exam - Physical Exam General Appearance: WD/WN, no apparent distress Neck: non-tender Respiratory: lungs clear Cardiac/Chest: regular rate, rhythm, No edema, No gallop, No JVD Peripheral Pulses: 2+: carotid (R), carotid (L) Abdomen: non-tender, soft Male Genitalia: deferred Rectal: deferred Neuro/Psych: alert, oriented x 3 ICD10 Worksheet Patient Problems: Problems Problem Status Onset Heart block AV second degree Acute
--- NOTE | 2017-06-02 10:37 | PDPROPOC ---
Sedation Plan of Care Sedation Plan of Care: vital signs stable, mental status noted, patient educated of risks, benefits, alternatives, patient can tolerate sedation ASA Classification: ASA 2 Planned drugs: fentanyl, midazolam Mallampati Score: Class 1 Mallampati Reference Image: Patient passed 3-3-2 rule?: Yes
--- NOTE | 2017-06-02 11:20 | SOAPPROG ---
ALICE Progress Note Assessment/Plan: Assessment: 1. Complete heart block associated with near syncope. 2. Coronary artery disease with critical 2 vessel disease involving the LAD and obtuse marginal branch. 06/01/17 08:50 Impression: Day 1. Status post admission with complete heart block near syncope. I reviewed diagnostic angiograms. Would recommend complete revascularization with PCI of the circumflex and LAD followed by implantation of a dual-chamber pacemaker 24-48 hours later. Discussed other options including medical therapy with a pacemaker versus coronary artery bypass grafting. Patient does not have diabetes. Left ventricular function is normal. I think he is a candidate for any approach. Having discussed this with the patient he and I agree that PCI strategy would be favored. PCI of circumflex and LAD this afternoon. Dual-chamber pacemaker 24-48 hours following. Continue aggressive secondary prevention. 06/02/17 11:17 Impression: Day 2. Status post admission with complete heart block. Complete revascularization of the LAD and circumflex yesterday without complications. Plan for dual-chamber pacemaker today. Optimization of medical therapy post procedure. At statin therapy. Considerations for Pratik inhibition. 06/02/17 11:20 Subjective: Feeling considerably better. No chest pain or shortness of breath. No dizziness, presyncope. Objective: Medications Generic Name Dose Route Start Last Admin Trade Name Freq PRN Reason Stop Dose Admin Aspirin Buffered 325 mg 06/02/17 09:00 06/02/17 08:18 Aspirin Ec PO 11/29/17 08:59 325 mg DAILY RO Clopidogrel Bisulfate 75 mg 06/02/17 09:00 06/02/17 08:18 Plavix PO 11/29/17 08:59 75 mg DAILY [facility] Levothyroxine Sodium 75 mcg 06/01/17 06:00 06/02/17 04:32 Synthroid PO 11/28/17 05:59 75 mcg DAILY06 [facility] Vital Signs Temp Pulse Resp BP Pulse Ox 36.9 C 70 25 H 108/71 95 06/02/17 08:00 06/02/17 09:00 06/02/17 09:00 06/02/17 09:00 06/02/17 09:00 Microbiology 06/01/17 21:45 Respiratory Panel (PCR) - Final Nasal, Sinus - [place] Viral Transport No Organism Detected Laboratory Results 06/02/17 04:27 06/02/17 04:27 06/01/17 06/02/1718 05:59 05:59 05:59 Intake Total 2750 2940 Output Total 670 3670 Balance 2075 1080 PT 13.8 SEC (12.0-15.0) 06/01/17 09:15 INR 1.04 (0.83-1.16) 06/01/17 09:15 Physical Exam - Physical Exam General Appearance: alert, no apparent distress Neck: full range of motion, supple Respiratory: chest non-tender, lungs clear Cardiac/Chest: normal peripheral pulses, regular rate, rhythm, No edema Peripheral Pulses: 1+: femoral (R) (Pacemaker right femoral vein) Abdomen: normal bowel sounds, non-tender, soft ICD10 Worksheet Patient Problems: Problems Problem Status Onset Heart block AV second degree Acute Review of Systems - Review of Systems Constitutional: denies: chills, fever EENTM: no symptoms reported Respiratory: no symptoms reported Gastrointestinal/Abdominal: no symptoms reported Genitourinary: no symptoms Musculoskelatal: no symptoms
--- NOTE | 2017-06-02 11:56 | POSTOPPROG ---
Post Op Note Date of Operation: 06/02/17 Surgeon: Jacek Huang Anesthesia: IV Sedation Pre-op Diagnosis: Intermittent complete heart block. Post-op Diagnosis: Same. Indication: Same. Procedure: Implantation of a dual-chamber pacemaker. Findings: Not applicable. Inf/Abcess present in the surg proc area at time of surgery?: No Depth: Deep Incisional (Fascial) EBL: Minimal Complications: None. Drains: Other (None.) Specimen(s): None.
--- NOTE | 2017-06-02 13:53 | CPEKG ---
Heart Rate: 68 RR Interval: 882 P-R Interval: 204 QRSD Interval: 164 QT Interval: 456 QTC Interval: 486 P [place]: 83 QRS [place]: -74 T Wave [place]: 98 EKG Severity - ABNORMAL ECG - EKG Impression: ATRIAL-SENSED VENTRICULAR-PACED RHYTHM Electronically Signed By: Jacek Huang 02-Jun-2017 15:51:30
[2017-06-02] MEDS: ATORVASTATIN CALCIUM 40 MG TAB PO SCH (15:22)
[2017-06-02] MEDS: IPRATROPIUM/ALBUTEROL 3 ML DEYVIAL IH SCH ×2 (17:14→23:59)
--- NOTE | 2017-06-02 18:48 | HOSPPROG ---
Hospitalist Progress Note Assessment/Plan: * Complete Heart Block -s/p PPM * CAD s/p stent LAD/circ -ASA/Plavix * Obesity BMI 36 - suspect STEFANIA -outpatient sleep study * ARF - improved with IVF * COPD - possibly due to asbestos exposure -add schedule nebs to usual inhalers * HTN -holding lisinopril/HCTZ Subjective: difficulty breathing lying flat - chronic longstanding - he blames asbostos exposure in past Objective: Vital Signs Temp Pulse Resp BP Pulse Ox 36.9 C 74 15 115/73 97 06/02/17 14:00 06/02/17 17:16 06/02/17 17:16 06/02/17 17:00 06/02/17 17:16 Microbiology 06/01/17 21:45 Respiratory Panel (PCR) - Final Nasal, Sinus - [place] Viral Transport No Organism Detected Laboratory Results 06/02/17 04:27 06/02/17 04:27 06/01/17 06/02/17 06/03/17 05:59 05:59 05:59 Intake Total 2750 2940 400 Output Total 675 1860 250 Balance 2075 1080 150 PT 13.8 SEC (12.0-15.0) 06/01/17 09:15 INR 1.04 (0.83-1.16) 06/01/17 09:15 CXR - no PTX EKG viewed, my personal interpretation is - paced rhythm - Physical Exam Constitutional: no apparent distress, appears nourished, not in pain Cardiovascular: regular rate and rhythym, no murmur, rub, or gallop Respiratory: no rales or rhonchi, expiratory wheeze, respiratory distress, No inspiratory crackles Gastrointestinal: normoactive bowel sounds, soft, non-tender abdomen, no palpable masses Skin: no rashes or abrasions, no fluctuance, no induration Neurologic: AAOx3, sensation intact bilaterally Psychiatric: interacting appropriately, not anxious, not encephalopathic, thought process linear ICD10 Worksheet Patient Problems: Problems Problem Status Onset Heart block AV second degree Acute
--- NOTE | 2017-06-02 21:59 | CPIP ---
[f rep st] INVASIVE CARDIAC PROCEDURE DATE OF PROCEDURE: 06/02/2017 INDICATIONS: The patient is a 71-year-old male, admitted by Saul Alvares on May 31 after experie ncing several episodes of syncope. He was found to have intermittent complete heart block. A tempor chriss pacemaker was placed. Subsequently, he underwent coronary angiography. This identified 2 high-g rade stenoses, which were stented by Dr. Abram Ziegler yesterday. He is now referred for permanent pacing. PROCEDURE: Implantation of a dual-chamber pacemaker. TECHNIQUE: Following informed consent, in the fasting state, the patient was brought to the cardiac catheterization laboratory. The left chest was prepped and draped in the usual sterile fashion. 2% lidocaine was infiltrated in the skin below the left clavicle. Immediately prior to the procedures, the patient was given 2 g of Ancef. A #10 blade was used to make a 3 cm incision. Blunt and sharp d issection was used to fashion the pacemaker pocket. All bleeders were cauterized. Using 2 sticks in the modified Seldinger technique, two individual 0.035 J-wires were placed in the axillary vein at t he level of the 1st rib. These were noted across the midline were finally placed in the superior marlene a cava. Using each of these J-wires, two individual 6-Libyan sheaths were placed. This allowed us t o place the atrial and ventricular leads under fluoroscopy. The leads were both secured into place a nd tested. The sheaths were then torn away and the lead secured to the pacemaker pocket floor. The pocket was then inspected. All bleeders were cauterized and irrigated with antibiotic-containing benjamín ution. The device was brought to the field. Both leads were identified by serial number and affixed to the header according to retail delivery driver guidelines. The device and the redundant portions of both l ines were then placed in the pacemaker pocket. The pocket was then closed in 3 layers using 2 layers interrupted suture with 2-0 and 3-0 Vicryl and finally, a running Stratafix for the skin. Steri-Str ips and a dry dressing were applied. At this point, the temporary transvenous pacemaker was then removed from the body under fluoroscopy. The venous sheath will be pulled over in the CVC. COMPLICATIONS: None. DEVICE INFORMATION: The pacemaker is a [employer] MRI device, model number [id number], se rial number [id number]. The atrial lead is [employer] Tendril STS, model number 2088TC, 52 cm in length, serial number [id number]. Right ventricular lead Tendril S is a [employer] Tendril STX, model number 2088TC, 58 cm in length, model number [id number]. In the atrium, capture was 1 volt at 5 milliseconds with sensed P-waves of 4.1 millivolts and a lead impedance of 541 ohms. In the ventri monserrat, capture was 0.5 volts, 0.5 milliseconds. Sensed R-waves which were paced of 14.7 millivolts and lead impedance of 507 ohms. DISPOSITION: The patient will be taken to the CVC. The right femoral venous sheath will be removed and he will be sent to the CVC for further care. /[id number]/MODL
[2017-06-03 04:35] VITALS: TEMP 98.2
[2017-06-03 04:43] LABS: PLATELET COUNT 220 10^3/uL (150-400)
[2017-06-03] MEDS: IPRATROPIUM/ALBUTEROL 3 ML DEYVIAL IH SCH ×2 (05:33→11:35)
[2017-06-03 05:36] VITALS: RESP 14
[2017-06-03] MEDS: LEVOTHYROXINE 75 MCG TAB PO SCH (06:16)
[2017-06-03] MEDS: BUDESONIDE/FORMOTEROL 80/4.5 60 PUFFS/MDI IH SCH (08:04)
--- NOTE | 2017-06-03 08:57 | CPEKG ---
Heart Rate: 72 RR Interval: 833 P-R Interval: 168 QRSD Interval: 190 QT Interval: 472 QTC Interval: 517 P Boissevain: 25 QRS Boissevain: -70 T Wave Boissevain: 93 EKG Severity - ABNORMAL ECG - EKG Impression: SINUS RHYTHM EKG Impression: NONSPECIFIC IVCD WITH LAD EKG Impression: NO PACING SPIKES NOTED, BUT MORPHOLOGY IS SIMILAR TO THAT WHICH WAS NOTED WITH EKG Impression: VENTRICULAR PACING IN THE PAST. Electronically Signed By: Genaro Banks 05-Jun-2017 12:27:30
[2017-06-03 09:04] VITALS: BP 105/77; PULSE 74; O2SAT 92
[2017-06-03] MEDS: CLOPIDOGREL BISULFATE 75 MG TAB PO SCH (09:37)
[2017-06-03] MEDS: ASPIRIN EC 325 MG TAB PO SCH (09:37)
[2017-06-03] MEDS: ATORVASTATIN CALCIUM 40 MG TAB PO SCH (09:37)
[2017-06-03] MEDS: CETIRIZINE 10 MG TAB PO SCH (09:37)
--- NOTE | 2017-06-03 10:25 | PDDCSUM ---
Discharge Summary Discharge Summary: Admission Date: 05/31/2017 Discharge Date: 06/03/2017 Admission Dx: Third degree heart block Discharge Dx: Third degree heart block s/p dual chamber PPM Coronary artery disease s/p LAD and Circumflex PCI Hyperlipidemia Medications: See attached form. Procedures: Left heart cath, PCI of the LAD and Cx. PPM, Echo. Narrative: 71 yo male admitted for complete heart block. Cardiac catheterization and insertion of a temporary pacer was done on admission revealing severe LAD and OM disease. He was admitted to the ICU. Hemodynamics stabilized. He was completely revascularized percutaneously. The following day he had a PPM placed without complication. He ambulated feeling markedly improved. He is discharged home today in improved condition.
== END 2017-06-03 12:45 | disposition home or self-care (01) | DRG 244 ==
LOC: OBSVTOIN 17:15 → F2W 18:06 → F2N 20:28 → F2W 06-02 11:03
PROVIDERS: ADMIT Internal Medicine; ATTEND Internal Medicine Interventional Cardiology
PROC: B2151ZZ Fluoroscopy of Left Heart using Low Osmolar Contrast (ICD-10-PCS; 2017-05-31)
PROC: 4A023N7 Measurement of Cardiac Sampling and Pressure, Left Heart, Percutaneous Approach (ICD-10-PCS; 2017-05-31)
PROC: 5A1223Z Performance of Cardiac Pacing, Continuous (ICD-10-PCS; 2017-05-31)
PROC: B2111ZZ Fluoroscopy of Multiple Coronary Arteries using Low Osmolar Contrast (ICD-10-PCS; 2017-05-31)
PROC: 02H63JZ Insertion of Pacemaker Lead into Right Atrium, Percutaneous Approach (ICD-10-PCS; principal; 2017-06-01)
PROC: 0JH60PZ Insertion of Cardiac Rhythm Related Device into Chest Subcutaneous Tissue and Fascia, Open Approach (ICD-10-PCS; principal; 2017-06-01)
PROC: 02HK3JZ Insertion of Pacemaker Lead into Right Ventricle, Percutaneous Approach (ICD-10-PCS; principal; 2017-06-01)
PROC: 027035Z Dilation of Coronary Artery, One Artery with Two Drug-eluting Intraluminal Devices, Percutaneous Approach (ICD-10-PCS; 2017-06-02)
DX: I44.2 Atrioventricular block, complete (principal); I25.10 Atherosclerotic heart disease of native coronary artery without angina pectoris; R42 Dizziness and giddiness; I10 Essential (primary) hypertension; E03.9 Hypothyroidism, unspecified; Z88.2 Allergy status to sulfonamides; H91.92 Unspecified hearing loss, left ear; F32.9 Major depressive disorder, single episode, unspecified; E66.9 Obesity, unspecified; Z68.36 Body mass index [BMI] 36.0-36.9, adult; G47.33 Obstructive sleep apnea (adult) (pediatric); J44.9 Chronic obstructive pulmonary disease, unspecified; Z87.891 Personal history of nicotine dependence
CPT/HCPCS: 96374; 97116-GP; 97161-GP; 97165-GO; 97535-GO; C1725; C1769; C1785; C1874; C1887; C1898; C9600; G8978-GP-CJ; G8979-GP-CI; J0461; J0583; J0690; J1644; J2250; J3010; Q9967